=== PATIENT | female | born 1990 ===

== ENCOUNTER 2017-04-08 21:55 | Observation (INO) | payer MEDICAID ==
[2017-04-08] MEDS ORDERED: Sodium Chloride 0.9% 1,000 ML IV STA (22:38)
[2017-04-08] MEDS ORDERED: Albuterol-Ipratrop 3 mg / 0.5 (3 ml) UD INH STA ×2 (22:57→23:51)
[2017-04-08 23:04] LABS: BASO # 0.1 K/uL (0.0-0.2); EOS # 1.3 K/uL (0.0-0.7); EOS % 8.9 % (0.0-4.0); HEMATOCRIT 39.5 % (34.0-47.0); LYMPH # 5.8 K/uL (1.0-4.3); LYMPH % 40.1 % (20.0-40.0); MEAN CELL VOLUME 89.5 fl (81.0-99.0); MEAN CORPUSCULAR HEMOGLOBIN 29.3 pg (27.0-31.0); MEAN CORPUSCULAR HGB CONC 32.8 g/dL (33.0-37.0); MEAN PLATELET VOLUME 7.5 fl (7.2-11.7); MONO # 0.7 K/uL (0.0-0.8); MONO % 4.9 % (0.0-10.0); NEUT # 6.5 K/uL (1.8-7.0); NEUT % 45.1 % (50.0-75.0); RED CELL DISTRIBUTION WIDTH 13.2 % (11.5-14.5); WHITE BLOOD COUNT 14.3 K/uL (4.8-10.8)
[2017-04-08] MEDS ORDERED: Albuterol-Ipratrop 3 mg / 0.5 (3 ml) UD ONE ×2 (23:06→23:55)
[2017-04-08 23:12] LABS: RBC URINE 1 /hpf (0-3); URINE BACTERIA RARE (<OCC); URINE BILIRUBIN NEGATIVE (NEGATIVE); URINE BLOOD NEGATIVE (NEGATIVE); URINE COLOR YELLOW (YELLOW); URINE GLUCOSE (UA) NEG (Normal); URINE KETONE NEGATIVE (NEGATIVE); URINE LEUKOCYTE ESTERASE TRACE Leu/uL (Negative); URINE PROTEIN NEGATIVE (NEGATIVE); URINE UROBILINOGEN 0.2-1.0 mg/dL (0.2-1.0); WBC URINE 1 /hpf (0-5)
[2017-04-08 23:14] LABS: ALB/GLOB RATIO 1.3 (1.0-2.1); ALKALINE PHOSPHATASE 54 U/L (38-126); ALT/SGPT 35 U/L (9-52); AST/SGOT 21 U/L (14-36); BILIRUBIN,TOTAL 0.4 mg/dl (0.2-1.3); BLOOD UREA NITROGEN 15 mg/dl (7-17); CALCIUM 9.5 mg/dL (8.4-10.2); CARBON DIOXIDE 24 mmol/L (22-30); CHLORIDE 106 mmol/L (98-107); GFR AFRICAN-AMERICAN > 60; GLUCOSE,RANDOM 108 mg/dL (65-105); MAGNESIUM 1.9 MG/DL (1.6-2.3); PHOSPHOROUS 4.3 mg/dl (2.5-4.5); SODIUM 142 mmol/l (132-148); TOTAL PROTEIN 7.8 G/DL (6.3-8.2)
[2017-04-08 23:19] LABS: PARTIAL THROMBOPLASTIN TIME 49.6 Seconds (25.6-37.1)
[2017-04-08 23:31] LABS: ABG ALLEN TEST YES; ARTERIAL BLOOD GAS HCO3 27.1 mmol/L (21-28); ARTERIAL BLOOD GAS PO2 61 mm/Hg (80-100)
--- NOTE | 2017-04-08 23:50 | ED PDOC ---
HPI: Asthma Time Seen by Provider: 04/08/17 22:11 Chief Complaint (Nursing): Cough, Cold, Congestion Chief Complaint (Provider): shortness of breath, cough History Per: Patient History/Exam Limitations: no limitations Onset/Duration Of Symptoms: Days (14 days ago), Persistent Current Symptoms Are (Timing): Still Present Associated Symptoms: Dyspnea, Cough Additional Complaint(s): Junito Rey is a 26 y/o female with a history of childhood asthma, who presents to the ED complaining of shortness of breath, cough, and chest tightness, that begun 14 days ago and is still present. Prior to coming to the ED, the patient reports of being seen by a primary care provider, where she was diagnosed with pneumonia. Patient was prescribed azithromycin and a steroid, albuterol, inhaler, but she experiences no improvement. Patient denies of any surgical or family history and smoking. PCP: Dr. Jitendra Blakely MD Past Medical History Reviewed: Historical Data, Nursing Documentation, Vital Signs Vital Signs: Last Vital Signs Temp 98.1 F 04/08/17 22:36 Pulse 102 H 04/08/17 22:03 Resp 19 04/08/17 22:03 BP 134/97 H 04/08/17 22:03 Pulse Ox 97 04/08/17 22:03 - Medical History PMH: Asthma (history of childhood asthma, not chronic), Gastritis Denies: HIV - Surgical History Surgical History: No Surg Hx - Family History Family History: States: No Known Family Hx - Social History Current smoker - smoking cessation education provided: No - Home Medications Home Medications: Ambulatory Orders Medication Instructions Recorded Albuterol HFA [Ventolin HFA 90 2 puff INH PRN PRN 04/09/17 mcg/actuation (8 g)] Albuterol/Ipratropium [Duoneb 3 3 ml INH RQ4 PRN #100 neb 04/09/17 mg/0.5 mg (3 ml) UD] Norgestimate-Ethinyl Estradiol 1 tab PO DAILY 04/09/17 [[place]-Linyah 28 Tablet] Promethazine DM [Phenergan DM 5 ml PO Q6 PRN #250 ml 04/09/17 Syrup] guaiFENesin [Mucinex LA] 1,200 mg PO Q12 #30 tab 04/09/17 predniSONE [predniSONE Tab] 50 mg PO DAILY #15 tab 04/09/17 - Allergies Allergies/Adverse Reactions: Allergies Allergy/AdvReac Type Severity Reaction Status Date / Time No Known Allergies Allergy Verified 04/09/17 11:17 Review of Systems ROS Statement: Except As Marked, All Systems Reviewed And Found Negative Cardiovascular: Positive for: Other (chest tightness) Respiratory: Positive for: Cough, Shortness of Breath Physical Exam - Reviewed Nursing Documentation Reviewed: Yes Vital Signs Reviewed: Yes - Physical Exam Appears: Positive for: Non-toxic, Uncomfortable, In Acute Distress Head Exam: Positive for: ATRAUMATIC, NORMOCEPHALIC Skin: Positive for: Warm, Dry Eye Exam: Positive for: EOMI, PERRL ENT: Negative for: Pharyngeal Erythema, Tonsillar Exudate Neck: Positive for: Painless ROM, Supple Cardiovascular/Chest: Positive for: Regular Rate, Rhythm, Chest Non Tender. Negative for: Murmur Respiratory: Positive for: Wheezing, Respiratory Distress. Negative for: Rales Gastrointestinal/Abdominal: Positive for: Soft. Negative for: Tenderness Back: Positive for: Normal Inspection. Negative for: Decreased ROM Extremity: Positive for: Normal ROM. Negative for: Deformity Lymphatic: Negative for: Adenopathy Neurologic/Psych: Positive for: Alert, Motor/Sensory Deficits - Laboratory Results Result Diagrams: 04/09/17 06:00 04/09/17 06:00 - ECG O2 Sat by Pulse Oximetry: 97 (RA) Pulse Ox Interpretation: Normal - Radiology X-Ray: Interpreted by Me X-Ray Interpretation: No Acute Disease (c/w images from previous CXR, provided by patient. Interval improvement of LLL pneumonia.) Medical Decision Making Medical Decision Making: Time: 22:38 Impression: Asthma Exacerbation persistent despite 2 courses of outpatient management Plan: --Chest x-ray --EKG --Albuterol 3ml INH --methylPREDnISolone 125 mg IVP --IV Fluids --Blood Culture --Urine Culture --Peak Flow Pre/Post TX Reassess: To be hospitalized to [facility] Scribe Attestation: Documented by Yosvany oMra, acting as a scribe for Em Mariscal MD. Provider Scribe Attestation: All medical record entries made by the Scribe were at my direction and personally dictated by me. I have reviewed the chart and agree that the record accurately reflects my personal performance of the history, physical exam, medical decision making, and the department course for this patient. I have also personally directed, reviewed, and agree with the discharge instructions and disposition. Disposition - Clinical Impression Clinical Impression: Asthma with severe exacerbation Discussed With DrEthan: Roberto Salgado Counseled Patient/Family Regarding: Studies Performed, Diagnosis - Disposition Disposition Time: 00:00 Condition: FAIR - Pt Status Changed To: Hospital Disposition Of: Observation - POA Present On Arrival: None
[2017-04-09] MEDS ORDERED: Albuterol-Ipratrop 3 mg / 0.5 (3 ml) UD INH PRN (03:29)
[2017-04-09] MEDS ORDERED: Promethazine/Cod 6.25mg-10mg/5ml Syr UD ONE (03:42)
[2017-04-09] MEDS ORDERED: MethylPREDNISolone 40 mg Vial IVP SCH (03:45)
[2017-04-09] MEDS: Promethazine DM 6.25 mg-15 mg/5 ml Syrup PO PRN ×2 (03:48→17:12)
[2017-04-09] MEDS ORDERED: MethylPREDNISolone 40 mg Vial ONE (04:43)
[2017-04-09 06:34] LABS: BASO % 0.2 % (0.0-2.0); EOS % 0.1 % (0.0-4.0); HEMATOCRIT 37.3 % (34.0-47.0); LYMPH # 0.8 K/uL (1.0-4.3); LYMPH % 7.8 % (20.0-40.0); MEAN CELL VOLUME 88.6 fl (81.0-99.0); MEAN CORPUSCULAR HEMOGLOBIN 29.9 pg (27.0-31.0); MEAN CORPUSCULAR HGB CONC 33.8 g/dL (33.0-37.0); MEAN PLATELET VOLUME 7.3 fl (7.2-11.7); MONO # 0.1 K/uL (0.0-0.8); MONO % 0.7 % (0.0-10.0); NEUT # 9.3 K/uL (1.8-7.0); NEUT % 91.2 % (50.0-75.0); NRBC % 0.1 % (0.0-0.0); PLATELET COUNT 382 K/uL (130-400); RED CELL DISTRIBUTION WIDTH 13.6 % (11.5-14.5); WHITE BLOOD COUNT 10.2 K/uL (4.8-10.8)
[2017-04-09 07:00] LABS: ALB/GLOB RATIO 1.3 (1.0-2.1); ALKALINE PHOSPHATASE 52 U/L (38-126); ALT/SGPT 30 U/L (9-52); AST/SGOT 16 U/L (14-36); BILIRUBIN,TOTAL 0.5 mg/dl (0.2-1.3); BLOOD UREA NITROGEN 9 mg/dl (7-17); CALCIUM 8.7 mg/dL (8.4-10.2); CARBON DIOXIDE 23 mmol/L (22-30); CHLORIDE 110 mmol/L (98-107); GFR AFRICAN-AMERICAN > 60; GLUCOSE,RANDOM 142 mg/dL (65-105); POTASSIUM 4.3 MMOL/L (3.6-5.0); SODIUM 142 mmol/l (132-148); TOTAL PROTEIN 6.6 G/DL (6.3-8.2)
--- NOTE | 2017-04-09 07:47 | CP.PCM.HP ---
History of Present Illness - History of Present Illness History of Present Illness: pt admitted for wheezing, chest congestion, resp distress s/p ouptt tx w/ 2x anbx for pna-zithromax/levaquin. given steroids and albuterol in er. abg and bw noted. cxr reviewed. Present on Admission - Present on Admission Any Indicators Present on Admission: No Review of Systems - Respiratory Respiratory: As Per HPI, Cough, Dyspnea on Exertion, Wheezing, Chest Congestion Past Patient History - Past Medical History & Family History Past Medical History?: No - Past Social History Smoking Status: Never Smoked - PULMONARY Hx Asthma: Yes (history of childhood asthma, not chronic) - HEMATOLOGICAL/ONCOLOGICAL Hx Human Immunodeficiency Virus (HIV): No - MUSCULOSKELETAL/RHEUMATOLOGICAL Hx Falls: No - GASTROINTESTINAL Hx Gastritis: Yes - PSYCHIATRIC Hx Substance Use: No - SURGICAL HISTORY Hx Surgeries: No - ANESTHESIA Hx Anesthesia: No Meds Allergies/Adverse Reactions: Allergies Allergy/AdvReac Type Severity Reaction Status Date / Time No Known Allergies Allergy Verified 04/08/17 22:06 Physical Exam - Constitutional Appears: Well, Non-toxic, No Acute Distress - Head Exam Head Exam: ATRAUMATIC, NORMAL INSPECTION, NORMOCEPHALIC - Eye Exam Eye Exam: EOMI, Normal appearance, PERRL Pupil Exam: NORMAL ACCOMODATION, PERRL - ENT Exam ENT Exam: Mucous Membranes Moist, Normal Exam - Neck Exam Neck exam: Positive for: Normal Inspection - Respiratory Exam Respiratory Exam: Clear to Auscultation Bilateral, NORMAL BREATHING PATTERN - Cardiovascular Exam Cardiovascular Exam: REGULAR RHYTHM, RRR, +S1, +S2 - GI/Abdominal Exam GI & Abdominal Exam: Normal Bowel Sounds, Soft. absent: Tenderness - Extremities Exam Extremities exam: Positive for: full ROM, normal capillary refill, normal inspection, pedal pulses present - Back Exam Back exam: FULL ROM, NORMAL INSPECTION - Neurological Exam Neurological exam: Alert, CN II-XII Intact, Normal Gait, Oriented x3, Reflexes Normal - Psychiatric Exam Psychiatric exam: Normal Affect, Normal Mood - Skin Skin Exam: Dry, Intact, Normal Color, Warm Results - Vital Signs Recent Vital Signs: Last Vital Signs Temp 98.0 F 04/09/17 06:41 Pulse 58 L 04/09/17 06:41 Resp 18 04/09/17 06:41 BP 107/54 L 04/09/17 06:41 Pulse Ox 99 04/09/17 06:41 - Labs Result Diagrams: 04/09/17 06:00 04/09/17 06:00 Labs: Laboratory Results - last 24 hr 04/08/17 04/08/17 04/08/17 23:00 23:00 23:00 WBC 14.3 H D RBC 4.41 Hgb 12.9 Hct 39.5 MCV 89.5 D MCH 29.3 MCHC 32.8 L RDW 13.2 Plt Count 413 H MPV 7.5 Neut % (Auto) 45.1 L Lymph % (Auto) 40.1 H Swisher % (Auto) 4.9 Eos % (Auto) 8.9 H Baso % (Auto) 1.0 Neut # 6.5 Lymph # 5.8 H Swisher # 0.7 Eos # 1.3 H Baso # 0.1 PT 13.6 H INR 1.2 APTT 49.6 H pCO2 pO2 HCO3 ABG pH ABG Total CO2 ABG O2 Saturation ABG Base Excess Blake Test ABG Potassium A-a O2 Difference Glucose Lactate FiO2 Sodium 142 Potassium 4.0 Chloride 106 Carbon Dioxide 24 Anion Gap 16 BUN 15 Creatinine 0.7 Est GFR ( Amer) > 60 Est GFR (Non-Af Amer) > 60 Random Glucose 108 H Calcium 9.5 Phosphorus 4.3 Magnesium 1.9 Total Bilirubin 0.4 AST 21 ALT 35 Alkaline Phosphatase 54 Total Protein 7.8 Albumin 4.3 Globulin 3.4 Albumin/Globulin Ratio 1.3 Arterial Blood Potassium Urine Color Urine Clarity Urine pH Ur Specific [place] Urine Protein Urine Glucose (UA) Urine Ketones Urine Blood Urine Nitrate Urine Bilirubin Urine Urobilinogen Ur Leukocyte Esterase Urine RBC (Auto) Urine Microscopic WBC Ur Squamous Epith Cells Urine Bacteria 04/08/17 04/08/17 04/09/17 23:00 23:20 06:00 WBC 10.2 RBC 4.21 Hgb 12.6 Hct 37.3 MCV 88.6 MCH 29.9 MCHC 33.8 RDW 13.6 Plt Count 382 MPV 7.3 Neut % (Auto) 91.2 H Lymph % (Auto) 7.8 L Swisher % (Auto) 0.7 Eos % (Auto) 0.1 Baso % (Auto) 0.2 Neut # 9.3 H Lymph # 0.8 L Swisher # 0.1 Eos # 0.0 Baso # 0.0 PT INR APTT pCO2 46 H pO2 61 L HCO3 27.1 ABG pH 7.40 ABG Total CO2 29.9 H ABG O2 Saturation 93.8 L ABG Base Excess 3.0 Blake Test Yes ABG Potassium 3.9 A-a O2 Difference 31.0 Glucose 105 Lactate 1.2 FiO2 21.0 Sodium 139.0 Potassium Chloride 107.0 Carbon Dioxide Anion Gap BUN Creatinine Est GFR ( Amer) Est GFR (Non-Af Amer) Random Glucose Calcium Phosphorus Magnesium Total Bilirubin AST ALT Alkaline Phosphatase Total Protein Albumin Globulin Albumin/Globulin Ratio Arterial Blood Potassium 3.9 Urine Color Yellow Urine Clarity Slighty-cloudy Urine pH 6.0 Ur Specific [place] 1.011 Urine Protein Negative Urine Glucose (UA) Neg Urine Ketones Negative Urine Blood Negative Urine Nitrate Negative Urine Bilirubin Negative Urine Urobilinogen 0.2-1.0 Ur Leukocyte Esterase Trace Urine RBC (Auto) 1 Urine Microscopic WBC 1 Ur Squamous Epith Cells 8 H Urine Bacteria Rare 04/09/17 06:00 WBC RBC Hgb Hct MCV MCH MCHC RDW Plt Count MPV Neut % (Auto) Lymph % (Auto) Swisher % (Auto) Eos % (Auto) Baso % (Auto) Neut # Lymph # Swisher # Eos # Baso # PT INR APTT pCO2 pO2 HCO3 ABG pH ABG Total CO2 ABG O2 Saturation ABG Base Excess Blake Test ABG Potassium A-a O2 Difference Glucose Lactate FiO2 Sodium 142 Potassium 4.3 Chloride 110 H Carbon Dioxide 23 Anion Gap 13 BUN 9 Creatinine 0.6 L Est GFR ( Amer) > 60 Est GFR (Non-Af Amer) > 60 Random Glucose 142 H Calcium 8.7 Phosphorus Magnesium Total Bilirubin 0.5 AST 16 ALT 30 Alkaline Phosphatase 52 Total Protein 6.6 Albumin 3.7 Globulin 2.9 Albumin/Globulin Ratio 1.3 Arterial Blood Potassium Urine Color Urine Clarity Urine pH Ur Specific [place] Urine Protein Urine Glucose (UA) Urine Ketones Urine Blood Urine Nitrate Urine Bilirubin Urine Urobilinogen Ur Leukocyte Esterase Urine RBC (Auto) Urine Microscopic WBC Ur Squamous Epith Cells Urine Bacteria Assessment & Plan (1) RAD (reactive airway disease) with wheezing Assessment and Plan: secondary to pna. doing well. cont albuterol, steroids spo2 100% atp resent on ra. if cont to improve will likely dc today Status: Acute (2) DVT prophylaxis Assessment and Plan: scd and aehose ambulation Status: Acute Priority: High - Assessment and Plan (Free Text) Assessment: all bw and imaging reviwed Decision To Admit - Pt Status Changed To: Hospital Disposition Of: Observation - . Bed Request Type: Med/Surg Admitting Physician: Jasmin Davey
--- NOTE | 2017-04-09 08:23 | CARD ---
APPROVED REPORT EKG Measurement Heart [id number] <Conclusion> Normal sinus rhythm with sinus arrhythmia Normal ECG
[2017-04-09] MEDS ORDERED: guaiFENesin 600 mg ER Tab PO SCH (09:00)
[2017-04-09] MEDS ORDERED: methylPREDNISolone 80 MG in Sodium Chloride 0.9% 50 ML IV SCH (09:00)
--- NOTE | 2017-04-09 10:05 | RAD ---
HISTORY: cough fever h/o pneumonia COMPARISON: No prior. TECHNIQUE: Chest PA and lateral FINDINGS: LUNGS: No active pulmonary disease. PLEURA: No significant pleural effusion identified. No pneumothorax apparent. CARDIOVASCULAR: Normal. OSSEOUS STRUCTURES: No significant abnormalities. VISUALIZED UPPER ABDOMEN: Normal. OTHER FINDINGS: None. IMPRESSION: No active disease.
[2017-04-09 10:39] VITALS: RESP 20
[2017-04-09 10:49] LABS: NEUTROPHIL 93 % (42-75); TOTAL CELLS COUNTED 100
[2017-04-09 11:08] VITALS: BMI 28.5
[2017-04-09 11:10] VITALS: O2SAT 97
[2017-04-09 16:42] VITALS: BP 125/76; PULSE 73; TEMP 98
--- NOTE | 2017-04-10 06:32 | CP.PCM.DIS ---
Provider - Provider Date of Admission: 04/08/17 23:53 Attending physician: Jasmin Davey MD Time Spent in preparation of Discharge (in minutes): 15 Diagnosis - Discharge Diagnosis (1) RAD (reactive airway disease) with wheezing Status: Acute (2) DVT prophylaxis Status: Acute Priority: High Hospital Course - Lab Results Lab Results: Micro Results 04/08/17 23:15 Blood Blood Culture - Preliminary NO GROWTH AFTER 24 HOURS Most Recent Lab Values WBC 10.2 K/uL (4.8-10.8) 04/09/17 06:00 RBC 4.21 Mil/uL (3.80-5.20) 04/09/17 06:00 Hgb 12.6 g/dL (12.0-16.0) 04/09/17 06:00 Hct 37.3 % (34.0-47.0) 04/09/17 06:00 MCV 88.6 fl (81.0-99.0) 04/09/17 06:00 MCH 29.9 pg (27.0-31.0) 04/09/17 06:00 MCHC 33.8 g/dL (33.0-37.0) 04/09/17 06:00 RDW 13.6 % (11.5-14.5) 04/09/17 06:00 Plt Count 382 K/uL (130-400) 04/09/17 06:00 MPV 7.3 fl (7.2-11.7) 04/09/17 06:00 Neut % (Auto) 91.2 % (50.0-75.0) H 04/09/17 06:00 Lymph % (Auto) 7.8 % (20.0-40.0) L 04/09/17 06:00 [place] % (Auto) 0.7 % (0.0-10.0) 04/09/17 06:00 Eos % (Auto) 0.1 % (0.0-4.0) 04/09/17 06:00 Baso % (Auto) 0.2 % (0.0-2.0) 04/09/17 06:00 Neut # 9.3 K/uL (1.8-7.0) H 04/09/17 06:00 Lymph # 0.8 K/uL (1.0-4.3) L 04/09/17 06:00 Addison # 0.1 K/uL (0.0-0.8) 04/09/17 06:00 Eos # 0.0 K/uL (0.0-0.7) 04/09/17 06:00 Baso # 0.0 K/uL (0.0-0.2) 04/09/17 06:00 Neutrophils % (Manual) 93 % (42-75) H 04/09/17 06:00 Lymphocytes % (Manual) 6 % (20-50) L 04/09/17 06:00 Monocytes % (Manual) 1 % (0-10) 04/09/17 06:00 Platelet Estimate Normal (NORMAL) 04/09/17 06:00 RBC Morphology Normal (NORMAL) 04/09/17 06:00 PT 13.6 Seconds (9.8-13.1) H 04/08/17 23:00 INR 1.2 (0.9-1.2) 04/08/17 23:00 APTT 49.6 Seconds (25.6-37.1) H 04/08/17 23:00 pCO2 46 mm/Hg (35-45) H 04/08/17 23:20 pO2 61 mm/Hg (80-100) L 04/08/17 23:20 HCO3 27.1 mmol/L (21-28) 04/08/17 23:20 ABG pH 7.40 (7.35-7.45) 04/08/17 23:20 ABG Total CO2 29.9 mmol/L (22-28) H 04/08/17 23:20 ABG O2 Saturation 93.8 % (95-98) L 04/08/17 23:20 ABG Base Excess 3.0 mmol/L (-2.0-3.0) 04/08/17 23:20 Blake Test Yes 04/08/17 23:20 ABG Potassium 3.9 mmol/L (3.6-5.2) 04/08/17 23:20 A-a O2 Difference 31.0 mm/Hg 04/08/17 23:20 Sodium 139.0 mmol/L (132-148) 04/08/17 23:20 Chloride 107.0 mmol/L (98-107) 04/08/17 23:20 Glucose 105 mg/dL (65-105) 04/08/17 23:20 Lactate 1.2 mmol/L (0.7-2.1) 04/08/17 23:20 FiO2 21.0 % 04/08/17 23:20 Sodium 142 mmol/l (132-148) 04/09/17 06:00 Potassium 4.3 MMOL/L (3.6-5.0) 04/09/17 06:00 Chloride 110 mmol/L (98-107) H 04/09/17 06:00 Carbon Dioxide 23 mmol/L (22-30) 04/09/17 06:00 Anion Gap 13 (10-20) 04/09/17 06:00 BUN 9 mg/dl (7-17) 04/09/17 06:00 Creatinine 0.6 mg/dl (0.7-1.2) L 04/09/17 06:00 Est GFR ( Amer) > 60 04/09/17 06:00 Est GFR (Non-Af Amer) > 60 04/09/17 06:00 Random Glucose 142 mg/dL (65-105) H 04/09/17 06:00 Calcium 8.7 mg/dL (8.4-10.2) 04/09/17 06:00 Phosphorus 4.3 mg/dl (2.5-4.5) 04/08/17 23:00 Magnesium 1.9 MG/DL (1.6-2.3) 04/08/17 23:00 Total Bilirubin 0.5 mg/dl (0.2-1.3) 04/09/17 06:00 AST 16 U/L (14-36) 04/09/17 06:00 ALT 30 U/L (9-52) 04/09/17 06:00 Alkaline Phosphatase 52 U/L (38-126) 04/09/17 06:00 Total Protein 6.6 G/DL (6.3-8.2) 04/09/17 06:00 Albumin 3.7 g/dL (3.5-5.0) 04/09/17 06:00 Globulin 2.9 gm/dL (2.2-3.9) 04/09/17 06:00 Albumin/Globulin Ratio 1.3 (1.0-2.1) 04/09/17 06:00 Arterial Blood Potassium 3.9 mmol/L (3.6-5.2) 04/08/17 23:20 Urine Color Yellow (YELLOW) 04/08/17 23:00 Urine Clarity Slighty-cloudy (Clear) 04/08/17 23:00 Urine pH 6.0 (5.0-8.0) 04/08/17 23:00 Ur Specific [place] 1.011 (1.003-1.030) 04/08/17 23:00 Urine Protein Negative mg/dL (NEGATIVE) 04/08/17 23:00 Urine Glucose (UA) Neg mg/dL (Normal) 04/08/17 23:00 Urine Ketones Negative mg/dL (NEGATIVE) 04/08/17 23:00 Urine Blood Negative (NEGATIVE) 04/08/17 23:00 Urine Nitrate Negative (NEGATIVE) 04/08/17 23:00 Urine Bilirubin Negative (NEGATIVE) 04/08/17 23:00 Urine Urobilinogen 0.2-1.0 mg/dL (0.2-1.0) 04/08/17 23:00 Ur Leukocyte Esterase Trace Anmol/uL (Negative) 04/08/17 23:00 Urine RBC (Auto) 1 /hpf (0-3) 04/08/17 23:00 Urine Microscopic WBC 1 /hpf (0-5) 04/08/17 23:00 Ur Squamous Epith Cells 8 /hpf (0-5) H 04/08/17 23:00 Urine Bacteria Rare (<OCC) 04/08/17 23:00 Discharge Exam - Head Exam Head Exam: ATRAUMATIC, NORMOCEPHALIC Discharge Plan - Discharge Medications Prescriptions: Albuterol/Ipratropium [Duoneb 3 mg/0.5 mg (3 ml) UD] 3 ml INH RQ4 PRN #100 neb PRN Reason: Shortness Of Breath guaiFENesin [Mucinex LA] 1,200 mg PO Q12 #30 tab predniSONE [predniSONE Tab] 50 mg PO DAILY #15 tab Promethazine DM [Phenergan DM Syrup] 5 ml PO Q6 PRN #250 ml PRN Reason: Cough - Follow Up Plan Condition: FAIR Disposition: HOME/ ROUTINE Instructions: Asthma (DC), How to Use a Nebulizer (DC), How Your Lungs Work (DC ) Additional Instructions: ANY PROBLEMS CALL DOCTOR OR GO TO EMERGENCY ROOM 911 FOR EMERGENCY HOME MEDS E-SCRIBED final dx rad s/p pna. f/u pmd, rted prn, med spe rmed rec, doing well per rn, goo spo2. nod istress. no wheezing.
== END 2017-04-09 19:19 | disposition home or self-care (01) ==
LOC: H.ER 21:55 → H.ERHOLD 23:53 → H.PEDS 04-09 09:53
PROVIDERS: ADMIT Family Medicine; ATTEND Family Medicine
DX: J45.901 Unspecified asthma with (acute) exacerbation (principal); Z87.01 Personal history of pneumonia (recurrent)
CPT/HCPCS: 36600; 71020; 80053; 81003; 81025; 82803; 83735; 84100; 85025; 85610; 85730; 87040; 87086; 93005; 94640; 96361; 96374; 96376; 99285; G0378; J2920; J2930; J7040

== ENCOUNTER 2017-09-07 10:19 | Emergency (ER) | payer MEDICAID ==
[2017-09-07 10:33] VITALS: BP 114/74; PULSE 80; TEMP 98; O2SAT 96
[2017-09-07 10:35] VITALS: BMI 29.3
--- NOTE | 2017-09-07 12:34 | ED PDOC ---
HPI: Female Pain Time Seen by Provider: 09/07/17 11:28 Chief Complaint (Nursing): Female Genitourinary Chief Complaint (Provider): Female Genitourinary History Per: Patient History/Exam Limitations: no limitations Onset/Duration Of Symptoms: Days (x5) Current Symptoms Are (Timing): Still Present Additional Complaint(s): 26 y/o female with no significant pmhx, who presents to the ED complaining of vaginal bleeding x5 days. Patient states she had intercourse with her boyfriend on Saturday and had vaginal bleeding the following day. States it was initially heavy, but has since subsided. Says she thought it was her period, but became concerned when she saw "pieces of skin" coming out, which prompted her to present for evaluation. States there is no chance of due to taking OCPs. Denies any urinary symptoms, nausea, vomiting, abdominal pain, dyspareunia , vaginal d/c. Past Medical History Reviewed: Historical Data, Nursing Documentation, Vital Signs Vital Signs: Last Vital Signs Temp 98 F 09/07/17 10:32 Pulse 80 09/07/17 10:32 Resp BP 114/74 09/07/17 10:32 Pulse Ox 96 09/07/17 10:32 - Medical History PMH: Asthma (history of childhood asthma, not chronic), Gastritis, Pneumonia (2 years ago) Denies: HIV - Surgical History Surgical History: No Surg Hx - Family History Family History: States: Unknown Family Hx - Social History Current smoker - smoking cessation education provided: No Alcohol: Occasional Drugs: Denies - Home Medications Home Medications: Ambulatory Orders Medication Instructions Recorded Albuterol HFA [Ventolin HFA 90 2 puff INH PRN PRN 04/09/17 mcg/actuation (8 g)] Albuterol/Ipratropium [Duoneb 3 3 ml INH RQ4 PRN #100 neb 04/09/17 mg/0.5 mg (3 ml) UD] Norgestimate-Ethinyl Estradiol 1 tab PO DAILY 04/09/17 [[place]-Linyah 28 Tablet] Promethazine DM [Phenergan DM 5 ml PO Q6 PRN #250 ml 04/09/17 Syrup] guaiFENesin [Mucinex LA] 1,200 mg PO Q12 #30 tab 04/09/17 predniSONE [predniSONE Tab] 50 mg PO DAILY #15 tab 04/09/17 - Allergies Allergies/Adverse Reactions: Allergies Allergy/AdvReac Type Severity Reaction Status Date / Time No Known Allergies Allergy Verified 04/09/17 11:17 Review of Systems ROS Statement: Except As Marked, All Systems Reviewed And Found Negative Gastrointestinal: Negative for: Nausea, Vomiting Genitourinary Female: Positive for: Vaginal Bleeding. Negative for: Dysuria, Frequency, Incontinence, Hematuria Physical Exam - Reviewed Nursing Documentation Reviewed: Yes Vital Signs Reviewed: Yes - Physical Exam Comments: GENERAL: Patient is awake, alert, oriented x 3, in no acute distress. SKIN: Warm, dry; (-) cyanosis. LUNGS: BS equal b/l, (-) wheezing, (-) rales. CARDIAC: RRR, (-) murmurs. ABDOMEN AND GI: Soft, (-) tenderness, (-) guarding, (-) rebound, (-) CVA tenderness. PELVIC: (+) scant vaginal bleeding. Cervix is pink and normal in appearance and closed, without any lesions, (-) rashes, (-) lesions to the external genitalia. A female CULTURAL HISTORIAN slate splitter was present with me during the entire examination. EXTREMITIES: (-) deformity, (+) FROM, (-) edema. - ECG O2 Sat by Pulse Oximetry: 96 (RA) Pulse Ox Interpretation: Normal Medical Decision Making Medical Decision Makin Clinical Impression: Vaginal bleeding Plan : - Uhcg - Pelvic exam Uhcg (-). Pelvic exam performed by HAI, was otherwise wnl. Patient is medically stable and will be discharged. Counseling was provided and all questions were answered regarding diagnosis and need for follow up with [facility] in 2 days for further evaluation. There is agreement to discharge plan. Return if symptoms persist or worsen. Scribe Attestation: Documented by Emmett Dumont, acting as a scribe for Cira Shaw PA-C. MD [place] Attestation: All medical record entries made by the Kinsey were at my direction and personally dictated by me. I have reviewed the chart and agree that the record accurately reflects my personal performance of the history, physical exam, medical decision making, and the department course for this patient. I have also personally directed, reviewed, and agree with the discharge instructions and disposition. Disposition - Clinical Impression Clinical Impression: Vaginal bleeding - Patient ED Disposition Is Patient to be Admitted: No Counseled Patient/Family Regarding: Diagnosis, Need For Followup - Disposition Disposition: Routine/Home Disposition Time: 12:15 Condition: STABLE Additional Instructions: Thank you for letting us take care of you today. You were treated for vaginal bleedingg. The emergency medical care you received today was directed at your acute symptoms. Return to the Emergency Department if your symptoms worsen, do not improve, or if you have any other problems. Please contact your [facility] doctor in 2 days for re-evaluation and follow up. Bring any paperwork you were given at discharge with you along with any medications you are taking to your follow up visit. Our treatment cannot replace ongoing medical care by a primary care provider (PCP) outside of the emergency department. Thank you for allowing the [facility] team to be part of your care today. Instructions: Heavy Periods (DC) Forms: [employer] (Lebanese) - PA / [employer] DEVELOPER / Resident Statement / has reviewed & agrees with the documentation as recorded.
== END 2017-09-07 12:55 | disposition home or self-care (01) ==
LOC: H.ER 10:19
DX: N93.9 Abnormal uterine and vaginal bleeding, unspecified (principal)